=== PATIENT | male | born 1985 | race Caucasian/White ===

== ENCOUNTER 2020-05-22 12:38 | Emergency (ER) | payer MEDICAID, SELFPAY ==
[~2020-05-22] VITALS: Ht 182.9 cm; Wt 95.3 kg
[2020-05-22 13:37] VITALS: BP_SYST 124
[2020-05-22 14:10] VITALS: BP_SYST 121
== END 2020-05-22 14:10 | disposition home or self-care (01) ==
LOC: SED 12:38
DX: U07.1 COVID-19 (principal); R03.0 Elevated blood-pressure reading, without diagnosis of hypertension
CPT/HCPCS: 71045; 86710; 99284; C9803; U0003